=== PATIENT | male | born 1980 | race American Indian/Alaskan Native ===

== ENCOUNTER 2016-11-30 03:19 | Emergency (ER) | payer MEDICARE ==
[2016-11-30 03:49] VITALS: BP 151/86
--- NOTE | 2016-11-30 05:09 | Ultrasound Report ---
FINAL REPORT PROCEDURE: US TESTICULAR DOPPLER COMP TECHNIQUE: Real-time gaitan-scale and color flow Doppler sonography in multiple planes of the scrotum, testicles, and epididymes was performed. Velocity spectral waveform analysis Doppler imaging of the arterial inflow and venous outflow of the testicles was performed with image documentation. CPT 26527 and 23251 HISTORY: Left testicular pain. Possible torsion COMPARISON: No prior studies are available for comparison. FINDINGS: The right testicle measures 5 4 x 2 4 x 3.5 centimeters. The left testicle measures 5.7 x 2.5 x 3.3 centimeters. Blood flow seen to both testicles by Doppler with no Doppler evidence of torsion. Both testicles have a homogeneous grayscale appearance showing no ultrasound abnormality. The left and right epididymis appear normal. IMPRESSION: 1. Both left and right testicles demonstrate no ultrasound abnormality. 2. Blood flow seen to both testicles by Doppler with no Doppler evidence of torsion.
--- NOTE | 2016-11-30 06:57 | Emergency Department Report ---
HPI - General Chief Complaint: Urogenital-Male Time Seen by Provider: 11/30/16 06:04 - HPI HPI: This is a 36-year-old Afro-[place] male presents emergency Department with a 2 day history of left groin and testicular pain. Patient says he was coughing so much that he began having pain in that region. Early this morning at work, the patient went to use the bathroom and the pain increased. He did not receive anything for symptoms prior to presentation but now says that he is asymptomatic. He denies any dysuria or difficulty with urination. He denies any fever, nausea, vomiting. He has a past medical history of asthma. No primary care doctor. No recent travel or sick contacts at home. He denies any trauma to the area. ED Past Medical Hx - Past Medical History Previous Medical History?: Yes Hx Congestive Heart Failure: No Hx Diabetes: No Hx Sickle Cell Disease: Yes (Father) Hx Asthma: Yes Hx COPD: Yes Hx HIV: No Additional medical history: INTUBATED X 1 - Surgical History Past Surgical History?: No - Social History Smoking Status: Never Smoker Substance Use Type: None - Medications Home Medications: Home Medications Medication Instructions Recorded Confirmed Last Taken Type Albuterol *Only Ed* [Proventil 2.5 mg IH Q4H PRN #1 box 07/22/15 11/30/1610/24 Rx 0.5% NEBS] ALBUTEROL Inhaler [ProAir HFA 2 puff IH QID PRN 30 Days 04/05/16 11/30/16 Unknown Rx Inhaler] Fluticasone/Salmeterol [Advair 1 each INHALATION BID #1 disk.w.dev 04/05/1603/11 Unknown Rx Diskus 100-50 mcg] Prednisone [predniSONE 10 mg 10 mg PO .TAPER #1 tab.ds.pk 04/05/16 11/30/16 Unknown Rx (6-Day Pack, 21 Tabs)] ED Review of Systems ROS: Stated complaint: TESTICULAR PAIN Other details as noted in HPI Comment: All other systems reviewed and negative Constitutional: denies: chills, fever Eyes: denies: eye pain, eye discharge, vision change ENT: denies: ear pain, throat pain Respiratory: denies: shortness of breath, wheezing Cardiovascular: denies: chest pain, palpitations Gastrointestinal: denies: abdominal pain, nausea, diarrhea Genitourinary: testicular pain. denies: dysuria Musculoskeletal: denies: back pain, joint swelling, arthralgia Skin: denies: rash, lesions Neurological: denies: headache, weakness, paresthesias Physical Exam - Physical Exam Vital Signs: Vital Signs 11/30/16 11/30/16 03:48 04:09 Temperature 98.2 F Pulse Rate 61 Respiratory 20 20 Rate Blood Pressure 151/86 [Right] O2 Sat by Pulse 99 99 Oximetry Physical Exam: GENERAL: The patient is well-developed well-nourished. HEENT: Normocephalic. Atraumatic. Extraocular motions are intact. Patient has moist mucous membranes. Pupils equal reactive to light bilaterally. NECK: Supple. Trachea is midline. CHEST/LUNGS: Clear to auscultation. There is no respiratory distress noted. HEART/CARDIOVASCULAR: Regular. There is no tachycardia. There is no gallop rub or murmur. ABDOMEN: Abdomen is soft, nontender. Patient has normal bowel sounds. There is no abdominal distention. SKIN: There is no rash. There is no edema. There is no diaphoresis. : No testicular or penile pain or lesions. No palpable hernia. NEURO: The patient is awake, alert, and oriented. The patient is cooperative. The patient has no focal neurologic deficits. The patient has normal speech and gait. MUSCULOSKELETAL: There is no tenderness or deformity. There is no limitation range of motion. There is no evidence of acute injury. ED Course Vital Signs 11/30/16 11/30/16 03:48 04:09 Temperature 98.2 F Pulse Rate 61 Respiratory 20 20 Rate Blood Pressure 151/86 [Right] O2 Sat by Pulse 99 99 Oximetry ED Medical Decision Making - Radiology Data Radiology results: report reviewed Testicular ultrasound does not show any torsion or any acute process. - Medical Decision Making 36-year-old male presents with pain in the left-sided groin and left testicle for the past 2 days that worsens with trying to take a bowel movement or cough which seems to be any intra-abdominal pressure. His symptoms appear consistent with a hernia. There is no visible or palpable hernia at this time but the patient's pain is also resolved. When I was checking for the indirect hernia on the left side, patient had the same pain with coughing. Urinalysis on show any significant urinary tract infection or cause of his discomfort. Ultrasound of the testicles does not show any torsion or any acute process. Patient says he has good follow-up for primary care and has been encouraged to follow up with them as he may need surgical referral in the future. We discussed strangulated and incarcerated hernias and he understands to return with any increase in his pain or any sign of mass or swelling. - Differential Diagnosis torsion, hernia, malignancy, epididymitis, UTI Critical Care Time: No Critical care attestation.: If time is entered above; I have spent that time in minutes in the direct care of this critically ill patient, excluding procedure time. ED Disposition Clinical Impression: Testicular pain, left, Left groin pain Inguinal hernia Qualifiers: Obstruction and gangrene presence: without obstruction or gangrene Laterality: unilateral Recurrence: not specified as recurrent Qualified Code(s): K40.90 - Unilateral inguinal hernia, without obstruction or gangrene, not specified as recurrent Disposition: DISCHARGED TO HOME OR SELFCARE Is pt being admited?: No Does the pt Need Aspirin: No Condition: Good Instructions: Inguinal Hernia (ED) Additional Instructions: Please follow-up with your primary care doctor in the next few days. Return to the emergency department with any worsening of her symptoms, swelling or mass seen or felt at the testicles/scrotum, or any other acute process. Referrals: PRIMARY CARE [Primary Care Provider] - 3-5 Days Time of Disposition: 07:50
[2016-11-30 08:12] LABS: Bilirubin,Urine NEG (Negative); Blood,Urine NEG (Negative); Ketones,Urine TR mg/dL (Negative); Leukocyte Esterase,Urine TR (Negative); Mucus,Urine 3+ /HPF; Nitrite,Urine NEG (Negative); Protein,Urine <15 mg/dL mg/dL (Negative)
== END 2016-11-30 08:15 | disposition home or self-care (01) ==
LOC: ED 03:19
DX: K40.90 Unilateral inguinal hernia, without obstruction or gangrene, not specified as recurrent (principal); N50.812 Left testicular pain; J45.909 Unspecified asthma, uncomplicated; J44.9 Chronic obstructive pulmonary disease, unspecified
CPT/HCPCS: 81001; 93975

== ENCOUNTER 2017-01-01 16:46 | Emergency (ER) | payer MEDICARE ==
[2017-01-01 17:19] VITALS: BP 125/73
--- NOTE | 2017-01-01 21:18 | Emergency Department Report ---
- General Chief Complaint: Laceration/Recheck/Suture Stated Complaint: RT HAND FINGER LACERATION Time Seen by Provider: 01/01/17 21:09 Source: patient Mode of arrival: Ambulatory Limitations: No Limitations - History of Present Illness Initial Comments: 32-year-old male presents laceration to volar aspect of his middle right ring finger since yesterday. Patient is not from tumors from this visit was at his job and landed over. Today while working. c/o mild swelling of right finger. Also requesting tetanus shot and time off from his job. -: Gradual, days(s) (more than 24 hours) Location: other (distal right ring finger, volar aspect) Extremity Location: Right: Hand (right ring finger) Place: work Patient Tetanus UTD: No Context: accidental Associated Symptoms: pain Treatments Prior to Arrival: bandage - Related Data Previous Rx's Medication Instructions Recorded Last Taken Type Albuterol *Only Ed* [Proventil 2.5 mg IH Q4H PRN #1 box 07/22/15 10/24/15 Rx 0.5% NEBS] ALBUTEROL Inhaler [ProAir HFA 2 puff IH QID PRN 30 Days 04/05/16 Unknown Rx Inhaler] Fluticasone/Salmeterol [Advair 1 each INHALATION BID #1 disk.w.dev 04/05/16 Unknown Rx Diskus 100-50 mcg] Prednisone [predniSONE 10 mg 10 mg PO .TAPER #1 tab.ds.pk 04/05/16 Unknown Rx (6-Day Pack, 21 Tabs)] Diclofenac Sodium 75 mg PO BID #30 tablet. 01/01/17 Unknown Rx Sulfamethoxazole/Trimethoprim 1 each PO BID #14 tablet 01/01/17 Unknown Rx [Bactrim DS TAB] Allergies Allergy/AdvReac Type Severity Reaction Status Date / Time No Known Allergies Allergy Verified 07/22/15 09:03 ED Review of Systems ROS: Stated complaint: RT HAND FINGER LACERATION Other details as noted in HPI Comment: All other systems reviewed and negative Constitutional: denies: chills, fever Eyes: denies: eye pain, eye discharge, vision change ENT: denies: ear pain, throat pain Respiratory: denies: cough, shortness of breath, wheezing Cardiovascular: denies: chest pain, palpitations Endocrine: no symptoms reported Gastrointestinal: denies: abdominal pain, nausea, diarrhea Genitourinary: denies: urgency, dysuria Musculoskeletal: other (right ring finger). denies: back pain, joint swelling, arthralgia Skin: other (1 cm old, healing laceration to volaraspect right ring finger. ). denies: rash, lesions Neurological: denies: headache, weakness, paresthesias Psychiatric: denies: anxiety, depression Hematological/Lymphatic: denies: easy bleeding, easy bruising ED Past Medical Hx - Past Medical History Hx Congestive Heart Failure: No Hx Diabetes: No Hx Sickle Cell Disease: Yes (Father) Hx Asthma: Yes Hx COPD: Yes Hx HIV: No Additional medical history: INTUBATED X 1 - Social History Smoking Status: Former Smoker Substance Use Type: None - Medications Home Medications: Home Medications Medication Instructions Recorded Confirmed Last Taken Type Albuterol *Only Ed* [Proventil 2.5 mg IH Q4H PRN #1 box 07/22/15 11/30/1610/24 Rx 0.5% NEBS] ALBUTEROL Inhaler [ProAir HFA 2 puff IH QID PRN 30 Days 04/05/16 11/30/16 Unknown Rx Inhaler] Fluticasone/Salmeterol [Advair 1 each INHALATION BID #1 disk.w.dev 04/05/1603/11 Unknown Rx Diskus 100-50 mcg] Prednisone [predniSONE 10 mg 10 mg PO .TAPER #1 tab.ds.pk 04/05/16 11/30/16 Unknown Rx (6-Day Pack, 21 Tabs)] Diclofenac Sodium 75 mg PO BID #30 tablet.dr 01/01/17 Unknown Rx Sulfamethoxazole/Trimethoprim 1 each PO BID #14 tablet 01/01/17 Unknown Rx [Bactrim DS TAB] ED Physical Exam - General Limitations: No Limitations General appearance: alert, in no apparent distress - Head Head exam: Present: atraumatic, normocephalic - Eye Eye exam: Present: normal appearance - ENT ENT exam: Present: mucous membranes moist - Neck Neck exam: Present: normal inspection - Respiratory Respiratory exam: Present: normal lung sounds bilaterally. Absent: respiratory distress - Cardiovascular Cardiovascular Exam: Present: regular rate, normal rhythm. Absent: systolic murmur, diastolic murmur, rubs, gallop - GI/Abdominal GI/Abdominal exam: Present: soft, normal bowel sounds - Rectal Rectal exam: Present: deferred - Extremities Exam Extremities exam: Present: normal inspection - Expanded Upper Extremity Exam Right General: Present: other Shoulder Exam: Present: normal inspection, full ROM Upper Arm exam: Present: normal inspection, full ROM Elbow exam: Present: normal inspection, full ROM Forearm Wrist exam: Present: normal inspection, full ROM Hand Wrist exam: Present: other (right ring finger: 1 cm laceration which is healing already, greater than 24 hours old. no surriounding erythema, no drainage or discharge. able to flex and extent distal and middle right ring finger without any difficulty. no visible tendon injury. NVI right ring finger) - Back Exam Back exam: Present: normal inspection - Neurological Exam Neurological exam: Present: alert, oriented X3 - Psychiatric Psychiatric exam: Present: normal affect, normal mood - Skin Skin exam: Present: warm, dry, intact, normal color. Absent: rash ED Course Vital Signs 01/01/17 17:15 Temperature 98 F Pulse Rate 78 Respiratory 16 Rate Blood Pressure 125/73 O2 Sat by Pulse 99 Oximetry - Reevaluation(s) Reevaluation #1: I explained to the patient that his laceration is more than 24-year-old therefore medical care at this point a cardiac he has a healing process going already been to the labia. We will apply triple antibiotic ointment after cleaning the wound with Betadine solution and put a nonstick dressing. I also discussed with him the importance of taking antibiotics regularly for the next 7 days. Also follow-up with orthopedics. 01/01/17 21:25 - Procedure Description Procedures done: wound cleaned with Betadine solution by the nurse, apllied topical anti-bx and non stick dressing to right ring finger. Critical care attestation.: If time is entered above; I have spent that time in minutes in the direct care of this critically ill patient, excluding procedure time. ED Disposition Clinical Impression: Laceration of right index finger w/o foreign body w/o damage to nail Qualifiers: Encounter type: initial encounter Qualified Code(s): S61.210A - Laceration without foreign body of right index finger without damage to nail, initial encounter Disposition: DISCHARGED TO HOME OR SELFCARE Is pt being admited?: No Does the pt Need Aspirin: No Condition: Good Instructions: Wound Infection (ED), Laceration (ED), Acute Wound Care (ED) Prescriptions: Diclofenac Sodium 75 mg PO BID #30 tablet. Sulfamethoxazole/Trimethoprim [Bactrim DS TAB] 1 each PO BID #14 tablet Referrals: DAVEY GILBERT MD [Primary Care Provider] - 3-5 Days Forms: Work/School Release Form(ED)
[2017-01-01] MEDS ORDERED: BOOSTRIX IM ONE (21:21)
[2017-01-01] MEDS ORDERED: BACTRIM DS PO ONE (21:22)
[2017-01-01] MEDS ORDERED: TRIPLE ANTIBIOTIC TP ONE (21:22)
== END 2017-01-01 21:50 | disposition home or self-care (01) ==
LOC: ED 16:46
DX: S61.214A Laceration without foreign body of right ring finger without damage to nail, initial encounter (principal); J44.9 Chronic obstructive pulmonary disease, unspecified; Z87.891 Personal history of nicotine dependence; W45.8XXA Other foreign body or object entering through skin, initial encounter; Y93.9 Activity, unspecified; Y92.9 Unspecified place or not applicable; Y99.9 Unspecified external cause status
CPT/HCPCS: 90471; 90715; 99283; A6250

== ENCOUNTER 2017-02-22 21:06 | Emergency (ER) | payer OTHER ==
[2017-02-22] MEDS ORDERED: TYLENOL ONE (21:27)
[2017-02-22] MEDS ORDERED: TYLENOL PO ONE (21:30)
[2017-02-23] MEDS ORDERED: NORCO 5/325 PO ONE (00:25)
[2017-02-23] MEDS ORDERED: TORADOL IM ONE (00:25)
--- NOTE | 2017-02-23 01:10 | Emergency Department Report ---
HPI - General Chief Complaint: Extremity Injury, Lower Time Seen by Provider: 02/23/17 00:18 - HPI HPI: 37-year-old male presents today with right foot pain and swelling since yesterday. Patient denies any injury or trauma. Denies history of similar symptoms or history of. Patient points to the first MTP joint when asked of the location of his pain. Describes his pain as a 10 out of 10 constant, sharp pain. Denies trying any medication for pain relief. Denies fever, chills, nausea, vomiting, chest pain, shortness of breath, abdominal pain. ED Past Medical Hx - Past Medical History Previous Medical History?: Yes Hx Congestive Heart Failure: No Hx Diabetes: No Hx Sickle Cell Disease: Yes (trait) Hx Asthma: Yes Hx COPD: Yes Hx HIV: No Additional medical history: INTUBATED X 1 - Surgical History Past Surgical History?: No - Social History Smoking Status: Former Smoker Substance Use Type: None - Medications Home Medications: Home Medications Medication Instructions Recorded Confirmed Last Taken Type Albuterol *Only Ed* [Proventil 2.5 mg IH Q4H PRN #1 box 07/22/15 11/30/1610/24 Rx 0.5% NEBS] ALBUTEROL Inhaler [ProAir HFA 2 puff IH QID PRN 30 Days 04/05/16 11/30/16 Unknown Rx Inhaler] Fluticasone/Salmeterol [Advair 1 each INHALATION BID #1 disk.w.dev 04/05/1603/11 Unknown Rx Diskus 100-50 mcg] Prednisone [predniSONE 10 mg 10 mg PO .TAPER #1 tab.ds.pk 04/05/16 11/30/16 Unknown Rx (6-Day Pack, 21 Tabs)] Diclofenac Sodium 75 mg PO BID #30 tablet.dr 01/01/17 Unknown Rx Sulfamethoxazole/Trimethoprim 1 each PO BID #14 tablet 01/01/17 Unknown Rx [Bactrim DS TAB] Indomethacin [Indocin] 25 mg PO Q8H #40 capsule 02/23/17 Unknown Rx ED Review of Systems ROS: Stated complaint: RT FOOT PAIN Other details as noted in HPI Constitutional: denies: chills, fever, malaise Eyes: denies: eye pain ENT: denies: ear pain, throat pain, congestion Respiratory: denies: cough, shortness of breath, wheezing Cardiovascular: denies: chest pain, palpitations Endocrine: no symptoms reported Gastrointestinal: denies: abdominal pain, nausea, vomiting Musculoskeletal: joint swelling, arthralgia Neurological: denies: headache, weakness, numbness, paresthesias Physical Exam - Physical Exam Vital Signs: Vital Signs 02/22/17 02/22/17 02/22/17 21:25 21:32 22:32 Temperature 100.2 F H Pulse Rate 78 Respiratory 18 18 Rate Blood Pressure 148/91 O2 Sat by Pulse 96 Oximetry 02/23/17 00:42 Temperature Pulse Rate Respiratory 20 Rate Blood Pressure O2 Sat by Pulse Oximetry Physical Exam: GENERAL: The patient is well-developed and well-nourished. Patient is in NAD. HEAD: Normocephalic. Atraumatic. CHEST/LUNGS: Clear to auscultation throughout. HEART/CARDIOVASCULAR: Regular rate and rhythm. No murmurs, rubs or gallops. ABDOMEN: Abdomen is soft, nontender. Bowel sounds normoactive. No guarding or rebound tenderness. RIGHT FOOT: Erythematous, tender to palpation, swelling noted over the first MTP joint. Positive for warm to touch. Normal sensation. Full ankle and digit range of motion. Peripheral pulses intact. Capillary refill less than 2 seconds. NEURO: Alert and oriented x 3. Normal gait. ED Course Vital Signs 02/22/17 02/22/17 02/22/17 21:25 21:32 22:32 Temperature 100.2 F H Pulse Rate 78 Respiratory 18 18 Rate Blood Pressure 148/91 O2 Sat by Pulse 96 Oximetry 02/23/17 00:42 Temperature Pulse Rate Respiratory 20 Rate Blood Pressure O2 Sat by Pulse Oximetry ED Medical Decision Making - Lab Data Vital Signs 02/22/17 02/22/17 02/22/17 21:25 21:32 22:32 Temperature 100.2 F H Pulse Rate 78 Respiratory 18 18 Rate Blood Pressure 148/91 Blood Pressure [Right] O2 Sat by Pulse 96 Oximetry 02/23/17 02/23/17 02/23/17 00:42 01:12 01:42 Temperature Pulse Rate Respiratory 20 20 20 Rate Blood Pressure Blood Pressure [Right] O2 Sat by Pulse Oximetry 02/23/17 02:00 Temperature 98.0 F Pulse Rate 73 Respiratory 20 Rate Blood Pressure Blood Pressure 112/62 [Right] O2 Sat by Pulse 99 Oximetry - Radiology Data Radiology results: report reviewed EXAM: XR FOOT 3 RT HISTORY: tender ove 1st mtp joint TECHNIQUE: Three views of the right foot PRIORS: None. FINDINGS: The bones are normally aligned and mineralized. The joint spaces are well-preserved. There is no evidence of acute fracture. The soft tissues are unremarkable. IMPRESSION: No evidence of acute fracture or subluxation. - Medical Decision Making 37-year-old male presents today with pain, swelling, erythema over the first MTP joint of his right foot. Patient denies any injury or trauma. His x-ray results reveal no evidence of acute fracture or subluxation. Patient is in no acute distress at this time. He will be discharged home and is encouraged to follow up with a primary care provider. He will be sent home on indomethacin and is encouraged to return to the emergency room for any worsening symptoms. Critical care attestation.: If time is entered above; I have spent that time in minutes in the direct care of this critically ill patient, excluding procedure time. ED Disposition Clinical Impression: Gout Qualifiers: Gout site: toe Gout etiology: unspecified cause Laterality: right Chronicity: acute Qualified Code(s): M10.9 - Gout, unspecified Disposition: DISCHARGED TO HOME OR SELFCARE Is pt being admited?: No Does the pt Need Aspirin: No Condition: Stable Instructions: Acute Gouty Arthritis (ED) Additional Instructions: Follow-up with primary care provider. Return to the emergency department if symptoms worsen. Prescriptions: Indomethacin [Indocin] 25 mg PO Q8H #40 capsule Referrals: PRIMARY CARE, [Primary Care Provider] - 3-5 Days Forms: Work/School Release Form(ED) Time of Disposition: 02:07
--- NOTE | 2017-02-23 01:24 | XRay Report ---
FINAL REPORT EXAM: XR FOOT 3 RT HISTORY: tender ove 1st mtp joint TECHNIQUE: Three views of the right foot PRIORS: None. FINDINGS: The bones are normally aligned and mineralized. The joint spaces are well-preserved. There is no evidence of acute fracture. The soft tissues are unremarkable. IMPRESSION: No evidence of acute fracture or subluxation.
[2017-02-23 02:01] VITALS: BP 112/62
== END 2017-02-23 02:42 | disposition home or self-care (01) ==
LOC: ED 21:06
DX: M10.9 Gout, unspecified (principal); J45.909 Unspecified asthma, uncomplicated; J44.9 Chronic obstructive pulmonary disease, unspecified; Z87.891 Personal history of nicotine dependence
CPT/HCPCS: 73630; 96372; 99283; J1885

== ENCOUNTER 2018-02-07 22:31 | Inpatient (IN) | payer OTHER ==
[2018-02-07] MEDS ORDERED: DUONEB *Not for PRN Use IH ONE (23:28)
[2018-02-08] MEDS ORDERED: DUONEB *Not for PRN Use IH ONE ×2 (02:41→02:44)
[2018-02-08] MEDS ORDERED: TYLENOL ONE (02:53)
[2018-02-08] MEDS ORDERED: TYLENOL PO ONE (02:58)
[2018-02-08] MEDS ORDERED: ATROVENT IH ONE ×2 (04:12→04:34)
[2018-02-08] MEDS ORDERED: PROVENTIL IH ONE ×4 (04:13→08:45)
[2018-02-08] MEDS ORDERED: PULMICORT IH ONE ×2 (04:43→04:44)
--- NOTE | 2018-02-08 06:34 | XRay Report ---
FINAL REPORT EXAM: XR CHEST ROUTINE 2V HISTORY: Asthma wheezing TECHNIQUE: PA and lateral views of the chest were submitted. FINDINGS: The lungs are clear. The lungs are not congested. The heart size is normal. Pleural fluid is not seen. The bones and soft tissues do not show any acute changes. IMPRESSION: No active chest disease.
[2018-02-08] MEDS ORDERED: MAGNESIUM SULFATE IV ONE (10:34)
--- NOTE | 2018-02-08 10:57 | Emergency Department Report ---
ED Asthma HPI - General Chief Complaint: Adult Asthma Stated Complaint: ASTHMA Time Seen by Provider: 02/08/18 08:26 Source: patient Mode of arrival: Ambulatory Limitations: No Limitations - History of Present Illness Initial Comments: He started having a sore throat. This is followed by shortness of breath and wheezing. [place] similar to his past asthma exacerbations. Has had to be intubated in the past for his asthma. He is using his inhaler/nebulizer every 3 hours at home. +nonproductive cough. No CP. -: Gradual - Related Data Previous Rx's Medication Instructions Recorded Last Taken Type Albuterol *Only Ed* [Proventil 2.5 mg IH Q4H PRN #1 box 07/22/15 10/24/15 Rx 0.5% NEBS] ALBUTEROL Inhaler [ProAir HFA 2 puff IH QID PRN 30 Days 04/05/16 Unknown Rx Inhaler] inhalation Fluticasone/Salmeterol [Advair 1 each INHALATION BID #1 disk.w.dev 04/05/16 Unknown Rx Diskus 100-50 mcg] Prednisone [predniSONE 10 mg 10 mg PO .TAPER #1 tab.ds.pk 04/05/16 Unknown Rx (6-Day Pack, 21 Tabs)] Diclofenac Sodium 75 mg PO BID #30 tablet. 01/01/17 Unknown Rx Sulfamethoxazole/Trimethoprim 1 each PO BID #14 tablet 01/01/17 Unknown Rx [Bactrim DS TAB] Indomethacin [Indocin] 25 mg PO Q8H #40 capsule 02/23/17 Unknown Rx Allergies Allergy/AdvReac Type Severity Reaction Status Date / Time No Known Allergies Allergy Verified 07/22/15 09:03 ED Review of Systems ROS: Stated complaint: ASTHMA Other details as noted in HPI Comment: All other systems reviewed and negative Respiratory: cough, shortness of breath, wheezing ED Past Medical Hx - Past Medical History Hx Congestive Heart Failure: No Hx Diabetes: No Hx Sickle Cell Disease: Yes (trait) Hx Asthma: Yes Hx COPD: Yes Hx HIV: No Additional medical history: INTUBATED X 1 - Social History Smoking Status: Never Smoker Substance Use Type: None - Medications Home Medications: Home Medications Medication Instructions Recorded Confirmed Last Taken Type Albuterol *Only Ed* [Proventil 2.5 mg IH Q4H PRN #1 box 07/22/15 11/30/1610/24 Rx 0.5% NEBS] ALBUTEROL Inhaler [ProAir HFA 2 puff IH QID PRN 30 Days 04/05/16 11/30/16 Unknown Rx Inhaler] inhalation Fluticasone/Salmeterol [Advair 1 each INHALATION BID #1 disk.w.dev 04/05/1603/11 Unknown Rx Diskus 100-50 mcg] Prednisone [predniSONE 10 mg 10 mg PO .TAPER #1 tab.ds.pk 04/05/16 11/30/16 Unknown Rx (6-Day Pack, 21 Tabs)] Diclofenac Sodium 75 mg PO BID #30 tablet.dr 01/01/17 Unknown Rx Sulfamethoxazole/Trimethoprim 1 each PO BID #14 tablet 01/01/17 Unknown Rx [Bactrim DS TAB] Indomethacin [Indocin] 25 mg PO Q8H #40 capsule 02/23/17 Unknown Rx ED Physical Exam - General Limitations: No Limitations General appearance: alert, in distress (mild resp distress) - Head Head exam: Present: atraumatic, normocephalic - Eye Eye exam: Present: normal appearance - ENT ENT exam: Present: mucous membranes moist - Neck Neck exam: Present: normal inspection - Respiratory Respiratory exam: Present: respiratory distress, wheezes, accessory muscle use ( supraclavicular tugging) - Cardiovascular Cardiovascular Exam: Present: regular rate, normal rhythm. Absent: systolic murmur, diastolic murmur, rubs, gallop - GI/Abdominal GI/Abdominal exam: Present: soft - Rectal Rectal exam: Present: deferred - Extremities Exam Extremities exam: Present: normal inspection - Back Exam Back exam: Present: normal inspection - Neurological Exam Neurological exam: Present: alert, oriented X3 - Psychiatric Psychiatric exam: Present: normal affect, normal mood - Skin Skin exam: Present: warm, dry, intact, normal color. Absent: rash ED Course Vital Signs 02/07/18 02/07/18 02/07/18 23:25 23:47 23:52 Temperature 98.2 F Pulse Rate 75 Pulse Rate [ 67 72 Anterior Bilateral Throughout] Respiratory 20 Rate Respiratory 16 16 Rate [Anterior Bilateral Throughout] Blood Pressure 136/88 Blood Pressure [Left] O2 Sat by Pulse 97 Oximetry 02/08/18 02/08/18 02/08/18 00:58 01:00 01:16 Temperature Pulse Rate Pulse Rate [ Anterior Bilateral Throughout] Respiratory Rate Respiratory Rate [Anterior Bilateral Throughout] Blood Pressure Blood Pressure [Left] O2 Sat by Pulse 99 100 100 Oximetry 02/08/18 02/08/18 02/08/18 02:58 03:58 04:56 Temperature Pulse Rate 90 Pulse Rate [ Anterior Bilateral Throughout] Respiratory 20 20 18 Rate Respiratory Rate [Anterior Bilateral Throughout] Blood Pressure Blood Pressure [Left] O2 Sat by Pulse 99 Oximetry 02/08/18 02/08/18 02/08/18 05:01 05:15 05:18 Temperature Pulse Rate 104 H 94 H Pulse Rate [ 91 H 83 Anterior Bilateral Throughout] Respiratory 18 20 Rate Respiratory 18 21 Rate [Anterior Bilateral Throughout] Blood Pressure 144/92 Blood Pressure [Left] O2 Sat by Pulse 99 91 Oximetry 02/08/18 02/08/18 02/08/18 05:30 05:45 06:00 Temperature Pulse Rate 92 H 88 92 H Pulse Rate [ Anterior Bilateral Throughout] Respiratory 23 25 H 25 H Rate Respiratory Rate [Anterior Bilateral Throughout] Blood Pressure 143/88 139/81 132/86 Blood Pressure [Left] O2 Sat by Pulse 92 89 90 Oximetry 02/08/18 02/08/18 02/08/18 06:15 06:30 06:45 Temperature Pulse Rate 79 85 Pulse Rate [ Anterior Bilateral Throughout] Respiratory 20 22 Rate Respiratory Rate [Anterior Bilateral Throughout] Blood Pressure 135/90 126/90 127/91 Blood Pressure [Left] O2 Sat by Pulse 89 91 92 Oximetry 02/08/18 02/08/18 02/08/18 07:00 07:30 08:45 Temperature 98.1 F Pulse Rate 86 94 H Pulse Rate [ Anterior Bilateral Throughout] Respiratory 21 18 16 Rate Respiratory Rate [Anterior Bilateral Throughout] Blood Pressure 137/86 Blood Pressure 139/84 [Left] O2 Sat by Pulse 91 96 98 Oximetry 02/08/18 02/08/18 09:09 09:47 Temperature Pulse Rate Pulse Rate [ 88 87 Anterior Bilateral Throughout] Respiratory Rate Respiratory 22 20 Rate [Anterior Bilateral Throughout] Blood Pressure Blood Pressure [Left] O2 Sat by Pulse Oximetry ED Medical Decision Making - Medical Decision Making 38-year-old male with past medical history of asthma, COPD that presents with progressive onset shortness of breath and wheezing. Presentation appears consistent with an asthma exacerbation. Patient has evidence of accessory muscle use. He's been given albuterol treatments every 2-3 hours in the ER. He has also received steroids and magnesium to service of his breathing. Patient has had history of intubations and admissions for his asthma. Patient will be admitted for further management and monitoring. Critical care attestation.: If time is entered above; I have spent that time in minutes in the direct care of this critically ill patient, excluding procedure time. ED Disposition Clinical Impression: Asthma exacerbation Disposition: OP ADMIT IP TO THIS HOSP Is pt being admited?: Yes Does the pt Need Aspirin: No Condition: Stable Referrals: MERVAT CALVERT MD [Primary Care Provider] - 3-5 Days
[2018-02-08] MEDS ORDERED: MAGNESIUM SULFATE 2GM/50ML 2 GM/50 ML BAG IV SCH (11:00)
--- NOTE | 2018-02-08 12:26 | History and Physical Report ---
History of Present Illness Date of examination: 02/08/18 Chief complaint: Shortness of breath History of present illness: 38-year-old -[place] male with past medical history significant for asthma, COPD presented to the emergency department last night complaining of shortness of breath. Patient had sore throat yesterday and after that he started to have recurrent dry cough followed with shortness of breath. Patient denied fever but admitted for chills. Patient denied chest pain. Patient denied any contact with sick person or recent travel history. Patient had previous asthma exacerbation and he was intubated in 2012. REVIEW OF SYSTEMS: GENERAL: no weight change, no fatigue, no fever HEAD: no head ache EYES: no blurry vision, no acute visual loss EARS: no hearing loss, no discharge, no earache NOSE: no stuffiness, no sneezing, no discharge MOUTH, THROAT AND NECK: no bleeding gums, no sore throat, no swollen neck CARDIAC: no palpitations, no dyspnea on exertion, no orthopnea, no PND, no edema , no chest pain RESPIRATORY: As stated in the HPI. GI: no decreased appetite, no nausea, no vomiting, no dysphagia, no diarrhea, no constipation, no abdominal pain URINARY: no change in frequency, no urgency, no polyuria, no hematuria, no incontinence MUSCULOSKELETAL: no muscle weakness, no pain, no joint stiffness NEUROLOGIC: no loss of sensation/numbness, no tingling, no tremors, no weakness/ paralysis HEMATOLOGIC: no anemia, no easy bruising SKIN: no rashes ENDOCRINE: no heat/cold intolerance, no polyuria, no polydipsia, no thyroid problems, no diabetes PSYCHIATRIC: no anxiety, no depression, no suicidal ideations Past History Past Medical History: COPD, other (Asthma) Past Surgical History: No surgical history Social history: full code. denies: smoking, alcohol abuse, prescription drug abuse, IV drug use Family history: no significant family history Medications and Allergies Allergies Allergy/AdvReac Type Severity Reaction Status Date / Time No Known Allergies Allergy Verified 07/22/15 09:03 Home Medications Medication Instructions Recorded Confirmed Last Taken Type Albuterol *Only Ed* [Proventil 2.5 mg IH Q4H PRN #1 box 07/22/15 11/30/1610/24 Rx 0.5% NEBS] ALBUTEROL Inhaler [ProAir HFA 2 puff IH QID PRN 30 Days 04/05/16 11/30/16 Unknown Rx Inhaler] inhalation Fluticasone/Salmeterol [Advair 1 each INHALATION BID #1 disk.w.dev 04/05/1603/11 Unknown Rx Diskus 100-50 mcg] Prednisone [predniSONE 10 mg 10 mg PO .TAPER #1 tab.ds.pk 04/05/16 11/30/16 Unknown Rx (6-Day Pack, 21 Tabs)] Diclofenac Sodium 75 mg PO BID #30 tablet.dr 01/01/17 Unknown Rx Sulfamethoxazole/Trimethoprim 1 each PO BID #14 tablet 01/01/17 Unknown Rx [Bactrim DS TAB] Indomethacin [Indocin] 25 mg PO Q8H #40 capsule 02/23/17 Unknown Rx Active Meds: Active Medications Magnesium Sulfate (Magnesium Sulfate 2gm/50ml) 2 gm in 50 mls @ 100 mls/hr IV ONCE BENJAMIN Exam - Physical Exam Narrative exam: Not in cardiopulmonary distress. The patient appeared well nourished and normally developed. Vital signs as documented. Head exam is unremarkable. No scleral icterus . Neck is without jugular venous distension, thyromegaly, or carotid bruits. Lungs wheezing all over the chest. Cardiac exam reveals regular rate and Rhythm. First and second heart sounds normal. No murmurs, rubs or gallops. Abdominal exam reveals normal bowel sounds, no masses, no organomegaly and no aortic enlargement. Extremities are nonedematous and both femoral and pedal pulses are normal. CLAIM ADJUSTER: Alert and oriented 3. No focal weakness. - Constitutional Vitals: Temp Pulse Resp BP Pulse Ox 98.1 F 89 17 139/85 95 02/08/18 07:30 02/08/18 12:00 02/08/18 12:00 02/08/18 12:00 02/08/18 12:00 Results - Imaging and Cardiology EKG: image reviewed Assessment and Plan Assessment and plan: Acute respiratory failure Asthma/COPD exacerbation - Patient is on IV Solu-Medrol, nebulizer, DuoNeb's, oxygen support - Chest x-rays normal DVT prophylaxis - Lovenox Disposition - Admit to the medical floor Advance Directives: Yes VTE prophylaxis?: Chemical Plan of care discussed with patient/family: Yes
[2018-02-08] MEDS ORDERED: PROAIR IH PRN (12:30)
[2018-02-08] MEDS ORDERED: PROVENTIL IH PRN (12:37)
[2018-02-08] MEDS: DUONEB *Not for PRN Use IH SCH ×2 (13:29→20:24)
[2018-02-08 13:38] LABS: Hematocrit 52.8 % (35.5-45.6); Hemoglobin 17.3 gm/dl (11.8-15.2); Mean Corpuscular HGB Conc 33 % (32-34); Mean Corpuscular Hemoglobin 31 pg (28-32); Mean Corpuscular Volume 96 fl (84-94); Red Cell Distribution Width 11.9 % (13.2-15.2)
[2018-02-08] MEDS: GUAIFENESIN DM SYRUP PO PRN ×2 (13:50→22:18)
[2018-02-08 14:33] LABS: Basophils % (Manual) 0 % (0.0-1.8); Total Cells Counted 100
[2018-02-08 14:34] LABS: Giant Platelets Rare; Platelet Estimate Consistent w Auto; RBC Morphology Normal
[2018-02-08 14:45] LABS: Platelet Count 108 K/mm3 (140-440)
[2018-02-08 14:51] LABS: BUN/Creatinine Ratio 13; Blood Urea Nitrogen 13 mg/dL (9-20); Calcium 9.2 mg/dL (8.4-10.2); Hemolysis Index 33
[2018-02-08] MEDS ORDERED: LOVENOX SUB-Q SCH (18:00)
[2018-02-08] MEDS: PULMICORT IH SCH (20:24)
[2018-02-08] MEDS: SINGULAIR PO SCH (22:17)
[2018-02-08] MEDS: LOVENOX SUB-Q SCH (22:18)
[2018-02-09] MEDS: DUONEB *Not for PRN Use IH SCH ×5 (01:06→21:10)
[2018-02-09 06:58] LABS: Hematocrit 47.8 % (35.5-45.6); Hemoglobin 16.1 gm/dl (11.8-15.2); Mean Corpuscular HGB Conc 34 % (32-34); Mean Corpuscular Hemoglobin 32 pg (28-32); Mean Corpuscular Volume 94 fl (84-94); Platelet Count 277 K/mm3 (140-440); Red Blood Count 5.07 M/mm3 (3.65-5.03); Red Cell Distribution Width 11.9 % (13.2-15.2)
[2018-02-09 07:21] LABS: BUN/Creatinine Ratio 23; Blood Urea Nitrogen 23 mg/dL (9-20); Calcium 9.5 mg/dL (8.4-10.2); Hemolysis Index 3
[2018-02-09] MEDS: PULMICORT IH SCH ×2 (08:10→21:10)
[2018-02-09 09:01] LABS: Total Cells Counted 100
[2018-02-09 09:02] LABS: Basophils % (Manual) 0 % (0.0-1.8); Eosinophils % (Manual) 0 % (0.0-4.3); RBC Morphology Normal
[2018-02-09] MEDS: LOVENOX SUB-Q SCH (09:13)
--- NOTE | 2018-02-09 09:49 | Progress Note ---
Assessment and Plan Assessment and plan: Acute respiratory failure. Etiology secondary to asthma exacerbation. Continue O2 for supportive care. Asthma/COPD exacerbation - Patient is on IV Solu-Medrol, nebulizer, DuoNeb's, oxygen support. Wean steroids today. - Chest x-rays normal Leukocytosis. -Etiology likely secondary to steroids DVT prophylaxis - Lovenox History Interval history: No new issues overnight. Hospitalist Physical - Constitutional Vitals: Temp Pulse Resp BP Pulse Ox 98.5 F 94 H 16 123/60 100 02/09/18 07:20 02/09/18 08:13 02/09/18 08:13 02/09/18 07:20 02/09/18 08:17 General appearance: Present: no acute distress, well-nourished - EENT Eyes: Present: PERRL, EOM intact ENT: hearing intact, clear oral mucosa, dentition normal - Neck Neck: Present: supple, normal ROM - Respiratory Respiratory effort: normal Respiratory: bilateral: diminished, wheezing - Cardiovascular Rhythm: regular Heart Sounds: Present: S1 & S2. Absent: gallop, rub - Extremities Extremities: no ischemia, No edema, Full ROM - Abdominal General gastrointestinal: soft, non-tender, non-distended, normal bowel sounds - Integumentary Integumentary: Present: clear, warm, dry - Neurologic Neurologic: CNII-XII intact, moves all extremities Results - Labs CBC & Chem 7: 02/09/18 06:14 02/09/18 06:14 Labs: Laboratory Last Values WBC 18.2 K/mm3 (4.5-11.0) H 02/09/18 06:14 RBC 5.07 M/mm3 (3.65-5.03) H 02/09/18 06:14 Hgb 16.1 gm/dl (11.8-15.2) H 02/09/18 06:14 Hct 47.8 % (35.5-45.6) H 02/09/18 06:14 MCV 94 fl (84-94) 02/09/18 06:14 MCH 32 pg (28-32) 02/09/18 06:14 MCHC 34 % (32-34) 02/09/18 06:14 RDW 11.9 % (13.2-15.2) L 02/09/18 06:14 Plt Count 277 K/mm3 (140-440) D 02/09/18 06:14 Add Manual Diff Complete 02/09/18 06:14 Total Counted 100 02/09/18 06:14 Seg Neutrophils % Brim Buster 02/09/18 06:14 Seg Neuts % (Manual) 89.0 % (40.0-70.0) H 02/09/18 06:14 Band Neutrophils % 0 % 02/09/18 06:14 Lymphocytes % (Manual) 9.0 % (13.4-35.0) L 02/09/18 06:14 Reactive Lymphs % (Man) 0 % 02/09/18 06:14 Monocytes % (Manual) 2.0 % (0.0-7.3) 02/09/18 06:14 Eosinophils % (Manual) 0 % (0.0-4.3) 02/09/18 06:14 Basophils % (Manual) 0 % (0.0-1.8) 02/09/18 06:14 Metamyelocytes % 0 % 02/09/18 06:14 Myelocytes % 0 % 02/09/18 06:14 Promyelocytes % 0 % 02/09/18 06:14 Blast Cells % 0 % 02/09/18 06:14 Nucleated RBC % Not Reportable 02/09/18 06:14 Seg Neutrophils # Man 16.2 K/mm3 (1.8-7.7) H 02/09/18 06:14 Band Neutrophils # 0.0 K/mm3 02/09/18 06:14 Lymphocytes # (Manual) 1.6 K/mm3 (1.2-5.4) 02/09/18 06:14 Abs React Lymphs (Man) 0.0 K/mm3 02/09/18 06:14 Monocytes # (Manual) 0.4 K/mm3 (0.0-0.8) 02/09/18 06:14 Eosinophils # (Manual) 0.0 K/mm3 (0.0-0.4) 02/09/18 06:14 Basophils # (Manual) 0.0 K/mm3 (0.0-0.1) 02/09/18 06:14 Metamyelocytes # 0.0 K/mm3 02/09/18 06:14 Myelocytes # 0.0 K/mm3 02/09/18 06:14 Promyelocytes # 0.0 K/mm3 02/09/18 06:14 Blast Cells # 0.0 K/mm3 02/09/18 06:14 WBC Morphology Not Reportable 02/09/18 06:14 Hypersegmented Neuts Not Reportable 02/09/18 06:14 Hyposegmented Neuts Not Reportable 02/09/18 06:14 Hypogranular Neuts Not Reportable 02/09/18 06:14 Smudge Cells Not Reportable 02/09/18 06:14 Toxic Granulation Not Reportable 02/09/18 06:14 Toxic Vacuolation Not Reportable 02/09/18 06:14 Dohle Bodies Not Reportable 02/09/18 06:14 Pelger-Huet Anomaly Not Reportable 02/09/18 06:14 Abdiel Rods Not Reportable 02/09/18 06:14 Platelet Estimate Not Reportable 02/09/18 06:14 Clumped Platelets Not Reportable 02/09/18 06:14 Plt Clumps, EDTA Not Reportable 02/09/18 06:14 Large Platelets Not Reportable 02/09/18 06:14 Giant Platelets Not Reportable 02/09/18 06:14 Platelet Satelliting Not Reportable 02/09/18 06:14 Plt Morphology Comment Not Reportable 02/09/18 06:14 RBC Morphology Normal 02/09/18 06:14 Dimorphic RBCs Not Reportable 02/09/18 06:14 Polychromasia Not Reportable 02/09/18 06:14 Hypochromasia Not Reportable 02/09/18 06:14 Poikilocytosis Not Reportable 02/09/18 06:14 Anisocytosis Not Reportable 02/09/18 06:14 Microcytosis Not Reportable 02/09/18 06:14 Macrocytosis Not Reportable 02/09/18 06:14 Spherocytes Not Reportable 02/09/18 06:14 Pappenheimer Bodies Not Reportable 02/09/18 06:14 Sickle Cells Not Reportable 02/09/18 06:14 Target Cells Not Reportable 02/09/18 06:14 Tear Drop Cells Not Reportable 02/09/18 06:14 Ovalocytes Not Reportable 02/09/18 06:14 Helmet Cells Not Reportable 02/09/18 06:14 [place] Bodies Not Reportable 02/09/18 06:14 [place] Rings Not Reportable 02/09/18 06:14 Serg Cells Not Reportable 02/09/18 06:14 Bite Cells Not Reportable 02/09/18 06:14 Crenated Cell Not Reportable 02/09/18 06:14 Elliptocytes Not Reportable 02/09/18 06:14 Acanthocytes (Spur) Not Reportable 02/09/18 06:14 Rouleaux Not Reportable 02/09/18 06:14 Hemoglobin C Crystals Not Reportable 02/09/18 06:14 Schistocytes Not Reportable 02/09/18 06:14 Malaria parasites Not Reportable 02/09/18 06:14 Norberto Bodies Not Reportable 02/09/18 06:14 Hem Pathologist Commnt No 02/09/18 06:14 Sodium 139 mmol/L (137-145) 02/09/18 06:14 Potassium 4.8 mmol/L (3.6-5.0) 02/09/18 06:14 Chloride 104.1 mmol/L (98-107) 02/09/18 06:14 Carbon Dioxide 23 mmol/L (22-30) 02/09/18 06:14 Anion Gap 17 mmol/L 02/09/18 06:14 BUN 23 mg/dL (9-20) H 02/09/18 06:14 Creatinine 1.0 mg/dL (0.8-1.5) 02/09/18 06:14 Estimated GFR > 60 ml/min 02/09/18 06:14 BUN/Creatinine Ratio 23 % 02/09/18 06:14 Glucose 150 mg/dL (75-100) H 02/09/18 06:14 Calcium 9.5 mg/dL (8.4-10.2) 02/09/18 06:14
[2018-02-09] MEDS: GUAIFENESIN DM SYRUP PO PRN (15:10)
[2018-02-09] MEDS: SINGULAIR PO SCH (21:14)
[2018-02-10] MEDS: DUONEB *Not for PRN Use IH SCH ×2 (02:56→08:20)
[2018-02-10] MEDS: PULMICORT IH SCH (08:20)
--- NOTE | 2018-02-10 08:24 | Discharge Summary ---
Providers - Providers Date of Admission: 02/08/18 17:53 Date of discharge: 02/10/18 Attending physician: FANI MARTE Primary care physician: MERVAT CALVERT Hospitalization Reason for admission: asthma exac Condition: Stable Hospital course: 38-year-old -[place] male with past medical history significant for asthma, COPD presented to the emergency department the night prior to admission complaining of shortness of breath. Patient had sore throat the day prior to admission and after that he started to have recurrent dry cough followed with shortness of breath. Patient denied fever but admitted to chills. Patient denied chest pain. Patient denied any contact with sick person or recent travel history. Patient had previous asthma exacerbation and he was intubated in 2012. Chest x-ray revealed no evidence of pneumonia. Patient was admitted with diagnosis of acute hypoxemic respiratory failure and acute asthma exacerbation. Patient was treated with systemic steroids, nebulizers and bronchodilators. Patient has significant improvement and is felt to have received maximal hospital benefit. Dedicated discharge time 32 minutes. Disposition: TO HOME OR SELFCARE Time spent for discharge: 32 - Discharge Diagnoses (1) Asthma exacerbation Status: Acute Core Measure Documentation - Palliative Care Palliative Care/ Comfort Measures: Not Applicable - Core Measures Any of the following diagnoses?: none Exam - Constitutional Vitals: Temp Pulse Resp BP Pulse Ox 98.2 F 69 14 118/80 94 02/10/18 07:40 02/10/18 07:40 02/10/18 07:40 02/10/18 07:40 02/10/18 07:40 General appearance: Present: no acute distress, well-nourished - EENT Eyes: Present: PERRL ENT: hearing intact, clear oral mucosa - Neck Neck: Present: supple, normal ROM - Respiratory Respiratory effort: normal Respiratory: bilateral: CTA - Cardiovascular Heart Sounds: Present: S1 & S2. Absent: rub, click - Extremities Extremities: pulses symmetrical, No edema Peripheral Pulses: within normal limits - Abdominal General gastrointestinal: Present: soft, non-tender, non-distended, normal bowel sounds Male genitourinary: Present: normal - Integumentary Integumentary: Present: clear, warm, dry - Musculoskeletal Musculoskeletal: gait normal, strength equal bilaterally - Psychiatric Psychiatric: appropriate mood/affect, intact judgment & insight - Neurologic Neurologic: CNII-XII intact, moves all extremities Plan Activity: no restrictions Weight Bearing Status: Full Weight Bearing Diet: regular Follow up with: MERVAT CALVERT MD [Primary Care Provider] - 3-5 Days Prescriptions: Albuterol *Only Ed* [Proventil 0.5% NEBS] 2.5 mg IH Q4H PRN #1 box PRN Reason: Wheezing ALBUTEROL Inhaler [ProAir HFA Inhaler] 2 puff IH QID PRN 30 Days inhalation PRN Reason: Shortness Of Breath Fluticasone/Salmeterol [Advair 250-50 Diskus] 1 puff INHALATION PRN PRN #30 blst.w.dev PRN Reason: Wheezing methylPREDNISolone [Medrol] 4 mg PO QAM #1 tab.ds.pk Montelukast [Singulair] 10 mg PO QHS #30 tablet
[2018-02-10] MEDS: LOVENOX SUB-Q SCH (10:33)
[2018-02-10 12:29] VITALS: BP 145/78
== END 2018-02-10 13:20 | disposition home or self-care (01) | DRG 189 ==
LOC: ED 22:31 → 3A 02-08 17:53
PROVIDERS: ADMIT Internal Medicine; ATTEND Hospitalist
DX: J96.01 Acute respiratory failure with hypoxia (principal); J44.1 Chronic obstructive pulmonary disease with (acute) exacerbation; D72.829 Elevated white blood cell count, unspecified
CPT/HCPCS: 36415; 71046; 80048; 85007; 85025; 94640; 94760; 96365; 96375; J1650; J2920; J2930; J3475

== ENCOUNTER 2018-07-19 08:58 | Emergency (ER) | payer SELFPAY ==
[2018-07-19] MEDS ORDERED: CLEOCIN 600 MG/50 mL 600 MG/50 ML BAG IV ONE (11:39)
--- NOTE | 2018-07-19 11:45 | Emergency Department Report ---
ED ENT HPI - General Chief complaint: Sore Throat Stated complaint: SWOLLEN NECK Time Seen by Provider: 07/19/18 11:29 Source: patient Mode of arrival: Ambulatory Limitations: No Limitations - History of Present Illness Initial comments: This is a 38-year-old male nontoxic, well nourished in appearance, no acute signs of distress presents to the ED with c/o of anterior under chin mass x1 week. Patient stated that he was seen with his primary care doctor and was referred to get CT but patient never has. Patient denies any pus or drainage. Patient denies any tenderness. Patient denies any fever, chills, headache, nausea, vomiting, chest pain, shortness of breathe, numbness, or tingling. Patient denies any difficulty breathing or drooling. Patient denies any visual changes. Patient denies any allergies. Past medical history. -: week(s) (1) Severity scale (0 -10): 0 Improves with: none Worsens with: none Associated Symptoms: denies: fever, cough, gum swelling, toothache, pain with swallowing, sore throat, tinnitus, hearing loss, discharge from ear, rhinorrhea - Related Data Previous Rx's Medication Instructions Recorded Last Taken Type ALBUTEROL Inhaler (OR & NICU) 2 puff IH QID PRN 30 Days 02/10/18 Unknown Rx [ProAir HFA Inhaler] inhalation Albuterol *Only Ed* [Proventil 2.5 mg IH Q4H PRN #1 box 02/10/18 Unknown Rx 0.5% NEBS] Fluticasone/Salmeterol [Advair 1 puff INHALATION PRN PRN #30 02/10/18 Unknown Rx 250-50 Diskus] blst.w.dev Montelukast [Singulair] 10 mg PO QHS #30 tablet 02/10/18 Unknown Rx methylPREDNISolone [Medrol] 4 mg PO QAM #1 tab.ds.pk 02/10/18 Unknown Rx Allergies Allergy/AdvReac Type Severity Reaction Status Date / Time No Known Allergies Allergy Verified 07/22/15 09:03 ED Dental HPI - General Chief complaint: Sore Throat Stated complaint: SWOLLEN NECK Time Seen by Provider: 07/19/18 11:29 Source: patient Mode of arrival: Ambulatory Limitations: No Limitations - Related Data Previous Rx's Medication Instructions Recorded Last Taken Type ALBUTEROL Inhaler (OR & NICU) 2 puff IH QID PRN 30 Days 02/10/18 Unknown Rx [ProAir HFA Inhaler] inhalation Albuterol *Only Ed* [Proventil 2.5 mg IH Q4H PRN #1 box 02/10/18 Unknown Rx 0.5% NEBS] Fluticasone/Salmeterol [Advair 1 puff INHALATION PRN PRN #30 02/10/18 Unknown Rx 250-50 Diskus] blst.w.dev Montelukast [Singulair] 10 mg PO QHS #30 tablet 02/10/18 Unknown Rx methylPREDNISolone [Medrol] 4 mg PO QAM #1 tab.ds.pk 02/10/18 Unknown Rx Allergies Allergy/AdvReac Type Severity Reaction Status Date / Time No Known Allergies Allergy Verified 07/22/15 09:03 ED Review of Systems ROS: Stated complaint: SWOLLEN NECK Other details as noted in HPI Constitutional: denies: chills, fever Eyes: denies: eye pain, eye discharge, vision change ENT: denies: ear pain, throat pain Respiratory: denies: cough, shortness of breath, wheezing Cardiovascular: denies: chest pain, palpitations Endocrine: no symptoms reported Gastrointestinal: denies: abdominal pain, nausea, diarrhea Genitourinary: denies: urgency, dysuria Musculoskeletal: denies: back pain, joint swelling, arthralgia Skin: denies: rash, lesions Neurological: denies: headache, weakness, paresthesias Psychiatric: denies: anxiety, depression Hematological/Lymphatic: denies: easy bleeding, easy bruising ED Past Medical Hx - Past Medical History Previous Medical History?: Yes Hx Congestive Heart Failure: No Hx Diabetes: No Hx Sickle Cell Disease: Yes (trait) Hx Asthma: Yes Hx COPD: Yes Hx HIV: No Additional medical history: INTUBATED X 1 - Surgical History Past Surgical History?: No - Social History Smoking Status: Never Smoker Substance Use Type: None - Medications Home Medications: Home Medications Medication Instructions Recorded Confirmed Last Taken Type ALBUTEROL Inhaler (OR & NICU) 2 puff IH QID PRN 30 Days 02/10/18 Unknown Rx [ProAir HFA Inhaler] inhalation Albuterol *Only Ed* [Proventil 2.5 mg IH Q4H PRN #1 box 02/10/18 Unknown Rx 0.5% NEBS] Fluticasone/Salmeterol [Advair 1 puff INHALATION PRN PRN #30 02/10/18 Unknown Rx 250-50 Diskus] blst.w.dev Montelukast [Singulair] 10 mg PO QHS #30 tablet 02/10/18 Unknown Rx methylPREDNISolone [Medrol] 4 mg PO QAM #1 tab.ds.pk 02/10/18 Unknown Rx ED Physical Exam - General Limitations: No Limitations General appearance: alert, in no apparent distress - Head Head exam: Present: atraumatic, normocephalic - Expanded Head Exam Expanded 1 - nodular nonmodule mass with in inudration or flutance. No surrounding cellulitis noted. - Eye Eye exam: Present: normal appearance Pupils: Present: normal accommodation - ENT ENT exam: Present: normal exam, normal orophraynx, mucous membranes moist, TM's normal bilaterally, other (Uvula midline. No airway compromise.) - Neck Neck exam: Present: normal inspection, full ROM. Absent: tenderness, meningismus, lymphadenopathy - Respiratory Respiratory exam: Present: normal lung sounds bilaterally. Absent: respiratory distress, wheezes, rales, rhonchi, stridor, chest wall tenderness - Cardiovascular Cardiovascular Exam: Present: regular rate, normal rhythm, normal heart sounds. Absent: bradycardia, tachycardia, irregular rhythm, systolic murmur, diastolic murmur, rubs, gallop - GI/Abdominal GI/Abdominal exam: Present: soft, normal bowel sounds - Rectal Rectal exam: Present: deferred - Extremities Exam Extremities exam: Present: normal inspection, full ROM, normal capillary refill. Absent: tenderness - Back Exam Back exam: Present: normal inspection, full ROM - Neurological Exam Neurological exam: Present: alert, oriented X3, normal gait - Psychiatric Psychiatric exam: Present: normal affect, normal mood - Skin Skin exam: Present: warm, dry, intact, normal color. Absent: rash ED Course Vital Signs 07/19/18 09:17 Temperature 98.0 F Pulse Rate 87 Respiratory 16 Rate Blood Pressure 140/86 O2 Sat by Pulse 96 Oximetry - Reevaluation(s) Reevaluation #1: 07/19/18 11:45 Patient is speaking in full sentences with no signs of distress noted. ED Medical Decision Making - Lab Data Result diagrams: 07/19/18 11:42 07/19/18 11:42 - Medical Decision Making This is a 38-year-old male that presents with a large submental lymph node. Patient is stable and was examined by me. There is no induration, fluctuance. No signs of abscess formation. No cellultitis noted. CT with contrast obtained and dictated by the radiologist. PAtient is notified of the Ct results with no questions noted. I did give patient clindamycin IV empirically prior to CT results for empirical treatment. Patient was referred to Follow-up with a primary care doctor in 3-5 days or if symptoms worsen and continue return to emergency room as soon as possible. At time of discharge, the patient does not seem toxic or ill in appearance. No acute signs of distress noted. Patient agrees to discharge treatment plan of care. No further questions noted by the patient. Critical care attestation.: If time is entered above; I have spent that time in minutes in the direct care of this critically ill patient, excluding procedure time. ED Disposition Clinical Impression: Enlarged submental lymph node Disposition: DC-01 TO HOME OR SELFCARE Is pt being admited?: No Does the pt Need Aspirin: No Condition: Stable Additional Instructions: Follow-up with a primary care doctor in 3-5 days or if symptoms worsen and continue return to emergency room as soon as possible. Referrals: PRIMARY MD JANAE [Primary Care Provider] - 3-5 Days RAMON RAMOS MD [Staff Physician] - 3-5 Days TAWANNA BABIN MD [Staff Physician] - 3-5 Days [facility] [Outside] - 3-5 Days Forms: Work/School Release Form(ED)
[2018-07-19 11:58] LABS: Basophils % (Auto) 0.6 % (0.0-1.8); Eosinophils # (Auto) 0.5 K/mm3 (0.0-0.4); Eosinophils % (Auto) 6.6 % (0.0-4.3); Hematocrit 45.1 % (35.5-45.6); Hemoglobin 15.2 gm/dl (11.8-15.2); Lymphocytes # (Auto) 1.2 K/mm3 (1.2-5.4); Lymphocytes % (Auto) 17.5 % (13.4-35.0); Mean Corpuscular HGB Conc 34 % (32-34); Mean Corpuscular Hemoglobin 32 pg (28-32); Mean Corpuscular Volume 94 fl (84-94); Monocytes # (Auto) 0.6 K/mm3 (0.0-0.8); Monocytes % (Auto) 8.8 % (0.0-7.3); Platelet Count 225 K/mm3 (140-440); Red Blood Count 4.79 M/mm3 (3.65-5.03)
[2018-07-19 12:13] LABS: BUN/Creatinine Ratio 18; Blood Urea Nitrogen 18 mg/dL (9-20); Hemolysis Index 9
--- NOTE | 2018-07-19 14:13 | Cat Scan Report ---
CT NECK WITH CONTRAST: HISTORY: Neck mass. TECHNIQUE: Helical CT following IV contrast. Sagittal and coronal reformatted images. FINDINGS: There are a few enlarged lymph nodes in the submental chain. The largest lymph node measures 2.6 x 2.0 x 1.6 cm. No evidence for necrosis or suspicious mass. The parotid and submandibular glands are normal. The carotid sheaths are intact. There is no evidence of adenopathy within the neck. The thyroid gland is normal. The glottic structures are normal. The airway is patent. Strap musculature is unremarkable. Hyoid bone and thyroid cartilage are intact. IMPRESSION: Enlarged submental lymph nodes which are probably reactive in nature.
[2018-07-19 14:49] VITALS: BP 137/95
== END 2018-07-19 14:48 | disposition home or self-care (01) ==
LOC: ED 08:58
DX: R59.0 Localized enlarged lymph nodes (principal); J44.9 Chronic obstructive pulmonary disease, unspecified; D57.3 Sickle-cell trait
CPT/HCPCS: 36415; 70491; 80048; 85025; 96365; 99284; Q9967

== ENCOUNTER 2019-07-02 08:33 | Emergency (ER) | payer OTHER ==
--- NOTE | 2019-07-02 09:32 | Emergency Department Report ---
HPI - General Chief Complaint: Dyspnea/Respdistress Time Seen by Provider: 07/02/19 08:40 - HPI HPI: 39-year-old -Al[place]ian male presents to the emergency department via EMS with complaint of shortness of breath, wheezing, coughing. He has a history of asthma and COPD but is not oxygen dependent at home. His symptoms been going on and getting progressively worse over the past week. He has been out of his albuterol inhaler but has been using a nebulizer without much relief. He does not smoke tobacco but occasionally will smoke marijuana. He does not have a waste elimination. His primary care physician is through the [facility]. No recent travel or sick contacts at home. He denies any fever, lower extremity swelling but does complain of some chest tightness. He had a pulse ox of 88% on room air when EMS arrived. He was placed on CPAP in the pulse ox improved. He was given 5 mg of albuterol, 125 mg of Solu-Medrol and 2 g of magnesium. ED Past Medical Hx - Past Medical History Previous Medical History?: Yes Hx Congestive Heart Failure: No Hx Diabetes: No Hx Sickle Cell Disease: Yes (trait) Hx Asthma: Yes Hx COPD: Yes Hx HIV: No Additional medical history: INTUBATED X 1 - Surgical History Past Surgical History?: No - Social History Smoking Status: Never Smoker Substance Use Type: Marijuana - Medications Home Medications: Home Medications Medication Instructions Recorded Confirmed Last Taken Type Albuterol *Only Ed* [Proventil 2.5 mg IH Q4H PRN #1 box 02/10/18 Unknown Rx 0.5% NEBS] Fluticasone/Salmeterol (Nf) 1 puff INHALATION PRN PRN #30 02/10/18 Unknown Rx [Advair 250-50 Diskus (Nf)] blst.w.dev Montelukast [Singulair] 10 mg PO QHS #30 tablet 02/10/18 Unknown Rx methylPREDNISolone [Medrol] 4 mg PO QAM #1 tab.ds.pk 02/10/18 Unknown Rx ALBUTEROL Inhaler (OR & NICU) 2 puff IH QID PRN #1 inhalation 07/02/19 Unknown Rx [ProAir HFA Inhaler] ALBUTEROL NEB's [Proventil 0.083% 2.5 mg IH QID PRN #1 box 07/02/19 Unknown Rx NEBS] predniSONE [Deltasone] 20 mg PO BID #10 tab 07/02/19 Unknown Rx ED Review of Systems ROS: Stated complaint: LINK Other details as noted in HPI Comment: All other systems reviewed and negative Constitutional: denies: chills, fever Eyes: denies: eye pain, vision change ENT: denies: ear pain, throat pain Respiratory: cough, shortness of breath, wheezing Cardiovascular: chest pain. denies: palpitations, edema Gastrointestinal: denies: abdominal pain, vomiting Genitourinary: denies: dysuria, discharge Musculoskeletal: denies: back pain, arthralgia Skin: denies: rash, lesions Neurological: denies: headache, weakness Physical Exam - Physical Exam Vital Signs: Vital Signs 07/02/19 07/02/19 07/02/19 08:33 08:46 08:51 Temperature 98.1 F Pulse Rate 94 H 96 H Respiratory 25 H 25 H 24 Rate Blood Pressure 143/100 143/80 Blood Pressure [Right] O2 Sat by Pulse 98 98 100 Oximetry 07/02/19 09:02 Temperature Pulse Rate 100 H Respiratory 20 Rate Blood Pressure Blood Pressure 132/99 [Right] O2 Sat by Pulse 97 Oximetry Physical Exam: GENERAL: The patient is well-developed well-nourished. HENT: Normocephalic. Atraumatic. Patient has moist mucous membranes. EYES: Extraocular motions are intact. Pupils equal reactive to light bilaterally. NECK: Supple. Trachea is midline. CHEST/LUNGS: Moderate wheezing throughout the chest. There is some tachypnea an d accessory muscle use and conversational dyspnea. There is respiratory distress noted. HEART/CARDIOVASCULAR: Regular. There is mild tachycardia. There is no murmur. ABDOMEN: Abdomen is soft, nontender. Patient has normal bowel sounds. There is no abdominal distention. SKIN: Skin is warm and dry. NEURO: The patient is awake, alert, and oriented. The patient is cooperative. The patient has no focal neurologic deficits. Normal speech. MUSCULOSKELETAL: There is no tenderness or deformity. There is no evidence of acute injury. ED Course Vital Signs 07/02/19 07/02/19 07/02/19 08:33 08:46 08:51 Temperature 98.1 F Pulse Rate 94 H 96 H Respiratory 25 H 25 H 24 Rate Blood Pressure 143/100 143/80 Blood Pressure [Right] O2 Sat by Pulse 98 98 100 Oximetry 07/02/19 09:02 Temperature Pulse Rate 100 H Respiratory 20 Rate Blood Pressure Blood Pressure 132/99 [Right] O2 Sat by Pulse 97 Oximetry - ABG Interpretation Ph: [phone] PCO2: 45 PO2: 116 Bicarbonate: 22 Interpretation: other (acidosis) ED Medical Decision Making - Lab Data Result diagrams: 07/02/19 09:20 07/02/19 09:20 - EKG Data -: EKG Interpreted by Me EKG shows normal: sinus rhythm, axis, intervals, QRS complexes, ST-T waves Rate: normal - EKG Data When compared to previous EKG there are: previous EKG unavailable Interpretation: normal EKG - Radiology Data Radiology results: image reviewed interpreted by me: Chest x-ray does not show any acute process. There are no pleural effusions, obvious pneumonia and there is no pneumothorax. - Medical Decision Making This patient presents with a one-week history of shortness breath, wheezing, coughing with a history of asthma and COPD. At first, the patient does appear in some respiratory distress with tachypnea, accessory muscle use, conversational dyspnea and the need for a CPAP in route and BiPAP upon arrival. He was given Solu-Medrol and magnesium in route, as well as some albuterol. The patient also received 2 further rounds of breathing treatments in the [facility] emergency [facility] department. Labs were unremarkable including a negative troponin and negative d-dimer. Chest x-ray did not show any pleural effusions, pneumonia, pneumothorax or focal consolidation, or any other acute processes. He was reevaluated multiple times over multiple hours and is feeling greatly improved. The patient was able to ambulate around the emergency department, without supplemental oxygen, without any return of his chest pain or worsening of his wheezing/bronchospasm. Vital signs stable throughout his ED course. ABG did not show any signs of hypoxemia. He'll be discharged home to follow-up with primary care and pulmonology through the [facility]. He has been given a refill of his albuterol nebulizer and inhaler medications, as well as a 5 day course of steroids. He will return to the emergency Department with any worsening of his symptoms or any acute distress. - Differential Diagnosis COPD, pneumonia, asthma, PE Critical Care Time: No Critical care attestation.: If time is entered above; I have spent that time in minutes in the direct care of this critically ill patient, excluding procedure time. ED Disposition Clinical Impression: COPD exacerbation Asthma exacerbation Qualifiers: Asthma severity: unspecified severity Asthma persistence: unspecified Qualified Code(s): J45.901 - Unspecified asthma with (acute) exacerbation Disposition: TO HOME OR SELFCARE Is pt being admited?: No Condition: Stable Instructions: Asthma (ED), Chronic Obstructive Pulmonary Disease (ED) Additional Instructions: Please follow-up with your primary care physician and a waste elimination at the [facility]. Return to the emergency department with any worsening of your symptoms or any acute distress. Prescriptions: predniSONE [Deltasone] 20 mg PO BID #10 tab ALBUTEROL Inhaler (OR & NICU) [ProAir HFA Inhaler] 2 puff IH QID PRN #1 inhalation PRN Reason: Shortness Of Breath ALBUTEROL NEB's [Proventil 0.083% NEBS] 2.5 mg IH QID PRN #1 box PRN Reason: Wheezing Referrals: [facility] [Outside] - 2-3 Days Time of Disposition: 13:37
--- NOTE | 2019-07-02 09:38 | XRay Report ---
CHEST 1 VIEW INDICATION: SOB COMPARISON: 02/08/2018 FINDINGS: Support devices: None Heart: Normal Lungs/Pleura: No acute pulmonary or pleural findings. IMPRESSION: 1. No acute disease and no interval change. Signer Name: Balwinder No MD Signed: 07/02/2019 9:33 AM Workstation Name: [id number]
[2019-07-02 09:51] LABS: Basophils # (Auto) 0.1 K/mm3 (0.0-0.1); Basophils % (Auto) 0.6 % (0.0-1.8); Eosinophils # (Auto) 0.6 K/mm3 (0.0-0.4); Eosinophils % (Auto) 4.8 % (0.0-4.3); Hematocrit 47.1 % (35.5-45.6); Hemoglobin 15.7 gm/dl (11.8-15.2); Lymphocytes # (Auto) 0.9 K/mm3 (1.2-5.4); Lymphocytes % (Auto) 7.8 % (13.4-35.0); Mean Corpuscular HGB Conc 33 % (32-34); Mean Corpuscular Volume 97 fl (84-94); Monocytes # (Auto) 0.4 K/mm3 (0.0-0.8); Monocytes % (Auto) 3.4 % (0.0-7.3); Platelet Count 206 K/mm3 (140-440); Red Blood Count 4.88 M/mm3 (3.65-5.03); Red Cell Distribution Width 12.4 % (13.2-15.2)
[2019-07-02 09:54] LABS: Alanine Aminotransferase 13 units/L (7-56); BUN/Creatinine Ratio 18; Blood Urea Nitrogen 22 mg/dL (9-20); Hemolysis Index 17
[2019-07-02] MEDS ORDERED: PROVENTIL IH ONE ×2 (10:25→11:35)
[2019-07-02 12:59] VITALS: BP 134/86
== END 2019-07-02 13:54 | disposition home or self-care (01) ==
LOC: ED 08:33
DX: J44.1 Chronic obstructive pulmonary disease with (acute) exacerbation (principal); F12.10 Cannabis abuse, uncomplicated; Z79.899 Other long term (current) drug therapy
CPT/HCPCS: 36415; 71045; 80053; 82803; 84484; 85025; 85379; 93005; 93010; 94640; 94644; 94760

== ENCOUNTER 2020-08-14 08:57 | Day surgery (SDC) | payer OTHER ==
--- NOTE | 2020-08-13 10:17 | Anesthesia Consultation ---
Anesthesia Consult and Med Hx Date of service: 08/13/20 - Airway Anesthetic Teeth Evaluation: Chipped (Broken tooth and also loose tooth right lower) ROM Head & Neck: Adequate Mental/Hyoid Distance: Adequate Mallampati Class: Class II Intubation Access Assessment: Good - Pre-Operative Health Status ASA Pre-Surgery Classification: ASA3 Proposed Anesthetic Plan: General - Pulmonary Hx Smoking: Yes (+2FS. Frequent asthma attacks-last two months ago) Hx Asthma: Yes (INTUBATED X 1 FOR ASTHMA ATTACK) COPD: Yes (?) Hx Pneumonia: No Hx Sleep Apnea: No (KAREN PRE SCREEN LOW RISK) - Cardiovascular System Hx Hypertension: No - Central Nervous System Hx Neuromuscular Disorder: Yes (Gout both feet) Hx Psychiatric Problems: No - Endocrine Hx End Stage Renal Disease: No - Hematic Hx Sickle Cell Disease: No (SC TRAIT ONLY) - Other Systems Hx Cancer: No
[2020-08-14] MEDS ORDERED: LACTATED RINGERS 1,000 ML ONE (09:13)
[2020-08-14] MEDS ORDERED: ACETAMINOPHEN 500 MG TAB PO ONE (10:02)
[2020-08-14] MEDS ORDERED: ONDANSETRON 4 MG/2 ML INJ IV PRN (10:02)
[2020-08-14] MEDS ORDERED: HYDROmorphone 1 MG/1 ML INJ IV PRN ×2 (10:02)
[2020-08-14] MEDS ORDERED: MAGNESIUM OXIDE 400 MG TAB PO ONE (10:02)
--- NOTE | 2020-08-14 10:02 | Anesthesia Day of Surgery ---
Anesthesia Day of Surgery - Day of Surgery Patient Examined: Yes Patient H&P Reviewed: Yes Patient is NPO: Yes
[2020-08-14] MEDS ORDERED: LIDOCAINE MPF (2%) 20 MG/1 ML VIAL 5 ML ONE (10:11)
[2020-08-14] MEDS ORDERED: ROCURONIUM 50 MG/5 ML INJ IV ONE (10:11)
[2020-08-14] MEDS ORDERED: propofoL 200 MG/20 ML VIAL IV ONE (10:12)
[2020-08-14] MEDS ORDERED: BUPIVACAINE/PF (0.5%) 5 MG/1 ML 30 ML VIAL INFILTRATI ONE ×2 (10:33→11:29)
[2020-08-14] MEDS ORDERED: LIDOCAINE (1%) 10 MG/1 ML VIAL 20 ML MDV ONE (10:33)
[2020-08-14] MEDS ORDERED: KETAMINE/STERILE WATER 50 MG/ML SYRINGE ONE (10:46)
[2020-08-14] MEDS ORDERED: CELECOXIB 200 MG CAP PO NR (11:00)
[2020-08-14] MEDS ORDERED: ceFAZolin/Water 2 GM/20 ML 2 GM/20 ML SYRINGE IV NR (11:00)
[2020-08-14] MEDS ORDERED: LACTATED RINGERS 1,000 ML IV SCH (11:00)
[2020-08-14] MEDS ORDERED: MIDAZOLAM 2 MG/2 ML INJ IV NR (11:00)
[2020-08-14] MEDS ORDERED: GABAPENTIN 300 MG CAP PO NR (11:00)
[2020-08-14] MEDS ORDERED: WATER FOR IRRIG STERILE 1,500 ML BOTTLE IR ONE (11:30)
[2020-08-14] MEDS ORDERED: LIDOCAINE (1%) 10 MG/1 ML VIAL 20 ML MDV INFILTRATI ONE (11:30)
[2020-08-14] MEDS ORDERED: HYDROmorphone 1 MG/1 ML INJ ONE (12:37)
[2020-08-14] MEDS ORDERED: ESMOLOL 100 MG/10 ML INJ IV ONE (12:40)
[2020-08-14] MEDS ORDERED: NEOSTIGMINE 10MG/10 ML INJ MDV ONE (12:40)
[2020-08-14] MEDS ORDERED: GLYCOPYRROLATE 0.4 MG/2 ML INJ ONE (12:40)
[2020-08-14] MEDS ORDERED: fentaNYL 100 MCG/2 ML INJ ONE (13:11)
--- NOTE | 2020-08-14 13:11 | Short Stay Summary ---
Short Stay Documentation Date of service: 08/14/20 - History Principal diagnosis: left inguinal hernia H&P: obtained from office - Allergies and Medications Current Medications: Allergies No Known Allergies Allergy (Verified 07/22/15 09:03) Home Medications Medication Instructions Recorded Confirmed Last Taken Type Albuterol Mdi (or & Nicu Only) 2 puff IH PRN PRN 08/07/20 08/14/20 08/13/20 08:00 History [ProAir HFA Inhaler] Budesonide/Formoterol Fumarate 2 puff IH BID 08/07/20 08/14/20 08/13/20 20:00 History [Symbicort 160-4.5 Mcg Inhaler] Fluticasone/Salmeterol (Nf) 1 puff INHALATION BID 08/07/20 08/14/20 08/13/20 08:00 History [Advair 250-50 Diskus (Nf)] Ipratropium (Nf) [Atrovent] 2 puff IH Q6HR PRN 08/13/20 08/14/20 08/13/20 08:00 History Active Medications Celecoxib (Celebrex) 400 mg PO PREOP NR Stop: 08/14/20 23:59 Last Admin: 08/14/20 10:15 Dose: 400 mg Documented by: Gabapentin (Gabapentin) 600 mg PO PREOP NR Stop: 08/14/20 23:55 Last Admin: 08/14/20 10:15 Dose: 600 mg Documented by: Hydromorphone HCl (Dilaudid) 0.25 mg IV Q10MIN PRN PRN Reason: Pain, Moderate (4-6) Hydromorphone HCl (Dilaudid) 0.5 mg IV Q10MIN PRN PRN Reason: Pain , Severe (7-10) Lactated Ringer's (Lactated Ringers) 1,000 mls @ 125 mls/hr IV DIRECT BENJAMIN Last Admin: 08/14/20 09:55 Dose: 125 mls/hr Documented by: Cefazolin Sodium (Ancef/Sterile Water 2 Gm/20 Ml) 2 gm in 20 mls @ 80 mls/hr IV PREOP NR; Protocol Stop: 08/14/20 23:59 Midazolam HCl (Versed) 2 mg IV PREOP NR Stop: 08/14/20 23:59 Last Admin: 08/14/20 09:25 Dose: 2 mg Documented by: Ondansetron HCl (Zofran) 4 mg IV ONCE PRN PRN Reason: Nausea And Vomiting - Brief post op/procedure progress note Date of procedure: 08/14/20 Pre-op diagnosis: left inguinal hernia Post-op diagnosis: same Procedure: robotic assisted left inguinal hernia repair with mesh Anesthesia: GETA, local Findings: 1. Large amount of incarcerated omentum in hernia 2. Very large indirect inguinal hernia with moderate sized cord lipoma 3. small umbilical hernia Surgeon: SAM MENDES (Zee Oreilly, [facility] [place]) Estimated blood loss: minimal Pathology: none Specimen disposition: to lab Condition: stable - Hospital course Hospital course: Pt observed in PACU and discharged to home in stable condition. - Disposition Condition at discharge: Good Disposition: DC-01 TO HOME OR SELFCARE Short Stay Discharge Plan Activity: other (No heavy lifting of more than 15lbs for the next 4-6 weeks) Diet: regular Wound: open to air (May shower in 1 day, pat incisions dry) Additional Instructions: See printed discharge instructions Follow up with: [facility] [Primary Care Provider] - 7 Days SAM MENDES DO [Staff Physician] - 14 Days Prescriptions: Celecoxib [celeBREX] 200 mg PO BID #6 capsule Gabapentin 300 mg PO BID #6 capsule HYDROcodone/APAP 5-325 [Dickinson 5/325] 1 each PO Q4HR PRN #20 tablet PRN Reason: Pain
--- NOTE | 2020-08-14 14:09 | Post Anesthesia Evaluation ---
- Post Anesthesia Evaluation Patient Participated: Yes Airway Patent: Yes Stable Respiratory Function: Yes Nausea/Vomiting: No Temp > 96.8F: Yes Pain Manageable: Yes Adequeate Hydration: Yes Anesthesia Complications: No Block Receding Appropriately: Not Applicable Patient on Ventilator: No
[2020-08-14] MEDS ORDERED: HYDROcodone/ACETAMINOPHEN 5-325 MG TAB PO PRN (15:00)
[2020-08-14 15:57] VITALS: BP 127/80
--- NOTE | 2020-08-14 17:17 | Operative Report ---
Operative Report Operative Report: Date of procedure: 08/14/20 Pre-op diagnosis: left inguinal hernia Post-op diagnosis: same Procedure: robotic assisted left inguinal hernia repair with mesh Anesthesia: GETA, local Findings: 1. Large amount of incarcerated omentum in hernia 2. Very large indirect inguinal hernia with moderate sized cord lipoma 3. small umbilical hernia Surgeon: SAM MENDES (Zee Oreilly, LOCK TENDER CHIEF OPERATOR) Estimated blood loss: minimal Pathology: none Specimen disposition: to lab Condition: stable - Hospital course Hospital course: Pt observed in PACU and discharged to home in stable condition. HPI and indication: Patient is a 40-year-old male with a longstanding history of a left inguinal hernia, he states been has been present since childhood. The hernia is reducible however has become more bothersome and larger over time, also causing scrotal swelling on the left. It was recommended that the hernia be repaired. I discussed all risk, benefits, alternatives to repair with the patient and questions were answered. I explained that if the hernia was found on the right side at the same time, this would be fixed as well. The patient was agreeable. Consent obtained for robotic assisted left inguinal hernia repair with mesh, possible right, possible open. Procedure in detail: Patient was identified in the preoperative area, take back to operating room placed on operative table in supine position. After anesthesia was induced both arms were tucked and all bony prominences padded appropriately. A Ashley catheter was sterilely placed by the circulating nurse. The abdomen and left groin was then prepped and draped in usual sterile fashion a timeout performed. Local anesthetic was infiltrated to skin at the intended incision sites. A supraumbilical incision was made through which a Veress ne edle was inserted. Veress needle positioning was confirmed using saline drop test and the abdomen insufflated to 15 mmHg. Once the abdomen was insufflated, the Veress needle was removed and a 5 mm Optiview trocar was placed as incision. The abdomen is inspected there was no underlying injury to any of the abdominal structures. Patient was placed in Trendelenburg and the pelvis examined. There was a large amount of omentum incarcerated in the left-sided inguinal hernia. This could not be reduced with manual pressure. There was no hernia seen on the right-hand side. At this point, an 8 mm right upper quadrant and left upper quadrant robotic trochars were then placed under direct visualization. The 5 mm supraumbilical trocar was removed and replaced with a 12 mm balloon trocar under direct visualization. A Ray-Jeremiah was placed into the abdomen. The robot was then docked. A fenestrated bipolar was placed into arm #2 and a monopolar scissor in arm #1. The surgeon was then transferred to the console. First, the contents of the hernia were reduced. Using gentle traction, a large amount of incarcerated omentum was able to be reduced back into the abdomen. There was no bleeding seen. I then proceeded to create a preperitoneal flap. The peritoneum was scored approximately 5 to 6 cm from the hernia defect. The peritoneum was then incised from the midline to the ASIS. The preperitoneal flap was then developed in an avascular plane. I first defined by medial margins by dissecting to the pubic tubercle. The pubic tubercle was cleared of overlying fatty tissue using blunt dissection. I then created bilateral margin in a similar fashion. Great care was taken to avoid injury to any nerves. I then started to reduce the hernia sac. The hernia sac was grasped and retracted laterally and cremasteric muscles were divided in a very careful fashion. During the dissection, the cord structures were identified and protected. The cord structures and vas deferens were visualized throughout the entire dissection. There was a moderate sized cord lipoma associated with the hernia sac which was reduced. The patient had a very large indirect inguinal hernia sac. The majority of the hernia sac was able to be reduced however at the medial aspect there was chronic scarring very close to the epigastric vessels which could not safely be . Therefore the hernia sac was divided at this location using monopolar scissors. The peritoneal flap was checked for hemostasis. Any additional cremasteric fibers that were were tenting up the peritoneum were divided. Hemostasis was carefully ensured. I decided to repair the hernia with a large left-sided 3D max mesh. This along with suture material was placed into the abdomen by the resident programs assistant. The mesh was positioned into the preperitoneal flap in the usual fashion. The medial portion of the flap was sutured to Tristian's ligament using an interrupted 2-0 Vicryl stitch. The lateral aspect of the mesh was sutured to the anterior lateral abdominal wall using a 2-0 Vicryl interrupted stitch. The mesh was seen to lay flat in the pocket with excellent coverage. A 18 Turkmen Angiocath was inserted through the abdominal wall into the pocket by the resident programs assistant under direct visualization. The needle was withdrawn into the catheter. The peritoneum was then reapproximated using 3-0 running V-Loc stitch. The very redundant hernia sac along with cord lipoma were incorporated into this repair. A small hole in the peritoneum was identified and approximated using a 2-0 Vicryl [id number]-zclix stitch. The remainder of the peritoneum was inspected carefully and there was no additional hole seen. The entirety of the mesh was covered with peritoneum. The robot was then undocked and the surgeon scrubbed back in. The remainder of the case was performed laparoscopically. All sharp materials along with a Ray-Jeremiah were removed from the abdomen under direct visualization. The 12 mm port was removed and the fascia closed using a interrupted 0 Vicryl stitch with a Jovan Soni device. Of note there was a less than 1 cm hernia at the umbilicus containing a small amount of preperitoneal fat. The fat was able to be reduced and the umbilical hernia repaired with this fascial stitch. The abdomen was then slowly desufflated and the mesh was seen to lay flat in the preperitoneal space. The remaining trochars were removed and any scrotal air evacuated through the Angiocath. The Angiocath was then removed. Skin incisions were once again infiltrated with local anesthetic. A left ilioinguinal nerve block was also performed with 5 cc of local anesthetic. The skin incisions were approximated with 4-0 Monocryl subcuticular stitches and skin glue. At the end of the case all sponge, instrument, sharp counts were correct x2. Patient was awoken from anesthesia and Ashley catheter removed. A scrotal support was applied along with a compressive dressing in the left groin. The patient was taken to PACU in stable condition.
== END 2020-08-14 08:58 | disposition home or self-care (01) ==
LOC: OR 08:57
PROVIDERS: ATTEND Surgery
DX: K40.30 Unilateral inguinal hernia, with obstruction, without gangrene, not specified as recurrent (principal); D17.6 Benign lipomatous neoplasm of spermatic cord; K42.9 Umbilical hernia without obstruction or gangrene; Z20.828 Contact with and (suspected) exposure to other viral communicable diseases; J96.01 Acute respiratory failure with hypoxia; Z79.899 Other long term (current) drug therapy; Z87.891 Personal history of nicotine dependence; Z98.890 Other specified postprocedural states; Z82.5 Family history of asthma and other chronic lower respiratory diseases; J44.9 Chronic obstructive pulmonary disease, unspecified
CPT/HCPCS: 49650; 49652; C1781; J1170; J2250; J2704; J2710; J3010; J3490; J7120; S2900; U0003